=== PATIENT | male | born 1965 | race Caucasian/White ===

== ENCOUNTER 2019-09-28 18:03 | Observation (INO) ==
[2019-09-28] MEDS ORDERED: ASPIRIN PO ONE (18:06)
[2019-09-28] MEDS ORDERED: NITROGLYCERIN ONE (18:23)
[2019-09-28] MEDS ORDERED: ZOFRAN IV ONE (18:25)
[2019-09-28] MEDS ORDERED: MORPHINE IV ONE (18:25)
[2019-09-28] MEDS ORDERED: NITROGLYCERIN SL ONE (18:25)
[2019-09-28 18:31] LABS: BASO# 0.08 X1000 (0.0-0.2); BASO% 0.5 % (0.0-0.8); EOS# 0.33 X1000 (0.0-0.7); EOS% 1.9 % (0.0-10.0); HEMATOCRIT 46.4 % (42.0-52.0); HEMOGLOBIN 15.4 g/dL (14.0-18.0); IMM GRAN# 0.07 X1000 (0.0-0.04); IMM GRAN% 0.4 % (0.0-0.5); LYMPH# 5.46 X1000 (1.2-3.4); LYMPH% 31.5 % (20.5-51.1); MCHC 33.2 g/dL (33-37); MCV 99.6 FL (81-99); MONO# 1.72 X1000 (0.11-0.59); MONO% 9.9 % (1.7-9.3); MPV 9.6 FL (7.4-10.4); NEUT% 55.8 % (42.2-75.2); PLT 374 X1000 (130-400); RBC 4.66 XMIL (4.7-6.1); RDW 13.1 % (11.5-14.5); WBC 17.36 X1000 (4.8-10.8)
[2019-09-28] MEDS ORDERED: NITROGLYCERIN TOP ONE (18:39)
[2019-09-28 18:45] LABS: INR 0.93; PROTIME 12.9 Seconds (11.0-16.0); PTT 27.5 Seconds (22.3-41.8)
[2019-09-28 19:07] LABS: AGAP 11; ALBUMIN 5.1 g/dL (3.5-5.0); ALKALINE PHOSPHATASE 110 U/L (32-122); BUN 16 mg/dL (8-22); CALCIUM 10.1 mg/dL (8.8-10.2); CHLORIDE 100 mmol/L (98-107); CK PROFILE 115 U/L (24-204); COSMO 282; CREATININE 1.2 mg/dL (0.7-1.2); ESTIMATED GFR > 60; GLUCOSE 129 mg/dL (70-104); GOT 21 U/L (10-34); GPT 28 U/L (10-44); SODIUM 140 mmol/L (136-145); TCO2 29 mmol/L (25-35); TOTAL PROTEIN 7.8 g/dL (6.3-8.3)
--- NOTE | 2019-09-28 19:09 | Diag Imaging Result Doc PS360 ---
EXAM: CHEST-2 VIEWS HISTORY: CP TECHNIQUE: Two views COMPARISON: None. FINDINGS: The lungs are well expanded. The heart is not enlarged. The vessels are not distended. There are no infiltrates. No pleural effusions. IMPRESSION: No acute abnormality. Electronically signed by Yayo Pedraza 09/28/2019 7:07 PM
[2019-09-28] MEDS ORDERED: APRESOLINE IV ONE (19:37)
[2019-09-28] MEDS ORDERED: TORADOL IV ONE (19:39)
[2019-09-28 19:54] LABS: BILIRUBIN URINE NEGATIVE (NEGATIVE); BLOOD URINE NEGATIVE (NEGATIVE); CLARITY CLEAR (CLEAR); COLOR YELLOW; GLUCOSE URINE NEGATIVE (NEGATIVE); KETONE URINE NEGATIVE (NEGATIVE); LEUKOCYTES URINE NEGATIVE (NEGATIVE); NITRITE URINE NEGATIVE (NEGATIVE); PROTEIN URINE NEGATIVE (NEGATIVE); SP GRAVITY URINE 1.005; UROBILINOGEN URINE NORMAL
[2019-09-28 19:58] LABS: URINE BACTERIA NEGATIVE /HFP; URINE EPITHELIAL CELLS <10 /HPF (<10); URINE RBC <10 /HPF (<10); URINE SOURCE CLEAN CATCH; URINE WBC <10 /HPF (<10)
[2019-09-28 20:04] LABS: UR AMPHETAMINES QUAL NONE DETECTED (NONE DETECT); UR BARBITUATES QUAL NONE DETECTED (NONE DETECT); UR BENZODIAZEPIN QUAL NONE DETECTED (NONE DETECT); UR CANNABINOIDS QUAL NONE DETECTED (NONE DETECT); UR COCAINE QUAL NONE DETECTED (NONE DETECT); UR METHADONE QUAL NONE DETECTED (NONE DETECT); UR METHAMPHETAMINE QUAL NONE DETECTED (NONE DETECT); UR OPIATES QUAL PRESUMPTIVE POSITIVE (NONE DETECT); UR OXYCODONE QUAL NONE DETECTED (NONE DETECT); UR PCP QUAL NONE DETECTED (NONE DETECT); UR PROPOXYPHENE QUAL NONE DETECTED (NONE DETECT); UR TCA QUAL NONE DETECTED (NONE DETECT)
[2019-09-28] MEDS ORDERED: LOVENOX 1 MG/KG SUBQ ONE (21:14)
[2019-09-28] MEDS ORDERED: LOVENOX SUBQ ONE ×3 (21:30→21:52)
--- NOTE | 2019-09-28 22:03 | PROVIDER DOCUMENTATION ---
This chart was entered by Terrence Scott Scribe, acting as scribe for Elissa Pollack MD. HPI-Chest Pain - General Chief Complaint: Chest Pain Stated Complaint: CHEST PAINS Time Seen by Provider: 09/28/19 19:06 Source: patient Allergies/Adverse Reactions: Patient Allergies Allergy/AdvReac Type Severity Reaction Status Date / Time No Known Allergies Allergy Verified 09/28/19 18:29 Home Medications: Home Medication List Medication Instructions Recorded Confirmed Last Taken Type Hydrocodone/APAP 10 mg/325 mg 1 tab PO PRN PRN 09/28/19 09/28/19 Unknown History [[place]-10] Pantoprazole [Protonix] 40 mg PO DAILY 09/28/19 09/28/19 Unknown History - History of Present Illness-CP Nature of Presenting Problem: Pt is a 54 yom who presents to the ED with a CC of chest pain. Pt reports his chest pain started approximately two hours prior to arrival to the ED. Pt reports his chest pain radiates to his neck and bilaterally to his upper arms. Pt reports taking omeprazole for his symptoms and denies any relief. Pt reports a hx of GERD and HTN. Pt denies a previous heart attack. Upon examination the pt has reproducible chest wall tenderness. Location: reports: central Chest Pain Radiation: reports: arms, neck Quality of Pain: reports: aching, sharp Severity in ED: mild Onset/Duration: 1-3 hours ago Timing: still present, constant Prior Chest Pain/Cardiac Workup: reports: non-cardiac Similar Symptoms Previously?: No Recently Seen Here or By Another Healthcare Provider: No Review of Systems - Adult - REVIEW OF SYSTEMS - ADULT Constitutional: reports: see HPI Eyes: reports: no symptoms reported Ears, Nose, Mouth & Throat: reports: no symptoms reported Cardiovascular: reports: see HPI, chest pain Respiratory: reports: no symptoms reported Gastrointestinal: reports: no symptoms reported Genitourinary: reports: no symptoms reported Musculoskeletal: reports: see HPI, muscle aches, neck pain Integumentary: reports: no symptoms reported Neurological: reports: no symptoms reported Psychiatric: reports: no symptoms reported Endocrine: reports: no symptoms reported Hematologic/Lymphatic: reports: no symptoms reported Allergic/Immunologic: reports: no symptoms reported All Other Systems: Reviewed and Negative Past History - Adult - PAST MEDICAL HISTORY-ADULT Review of Records: reports: Old Records Reviewed, Nursing Assessment Review, Medications Reviewed, Social history reviewed & non-contributory. Major Childhood Illnesses: reports: denies history Cardiovascular: reports: HTN, hyperlipidemia Respiratory: reports: denies history Gastrointestinal: reports: GERD Obstetrical/Gynecological: reports: denies history Genitourinary: reports: denies history Musculoskeletal: reports: denies history Neurological: reports: denies history Endocrine/Immune: reports: denies history Other Conditions: reports: denies history - PRIOR SURGERIES/PROCEDURES Surgical/Procedure History: reports: back/neck - IMMUNIZATION STATUS Childhood Immunizations: See Nurse Assessment Flu Vaccine: See Nurse Assessment - FAMILY HISTORY Family History: reviewed, not pertinent - SOCIAL HISTORY Smoking: cigarettes, less than 1 pack/day Substance Use: none/never, denies Alcohol Use Frequency: never Physical Exam-General - PHYSICAL EXAM-ADULT Initial Vital Signs Reviewed: Yes - CONSTITUTIONAL General Appearance: alert, mild distress - EYES Eyes: PERRL/EOMI, pink conjunctivae - HEAD, EARS, NOSE, MOUTH & THROAT HENMT: normocephalic/atraumatic, moist mucous membranes - NECK Neck: full range of motion - RESPIRATORY Respiratory: lungs clear, normal breath sounds, no respiratory distress, no accessory muscle use, other (Chest wall tenderness) - CARDIOVASCULAR Cardiovascular: normal peripheral pulses, regular rate, rhythm, no edema - GASTROINTESTINAL (ABDOMEN) Abdominal Exam: non tender, soft - MUSCULOSKELETAL Extremity: normal range of motion, non-tender - SKIN Integumentary: normal color, warm/dry - NEUROLOGIC Neurologic: grossly normal, no motor/sensory deficits - PSYCHIATRIC Psych/Mental Status: normal mood/affect, normal thought content, normal thought process, oriented x 3 - HEART Score HEART Score: History: Moderately Suspicious HEART Score: ECG: Non-Specific Repolarization Disturbance/LBBB/PM HEART Score: Age: 45-65 Years HEART Score: Risk Factors for Atherosclerotic Disease: > or = 3 Risk Factors or History of Atherosclerotic Disease HEART Score: Troponin: < or = Normal Limit Total HEART Score:: 5 Progress - PLAN OF CARE/RESULTS Progress/Plan/Lab Results: Vital Signs - 8 hr 09/28/19 18:18 09/28/19 20:00 09/28/19 21:07 Temperature 98.7 F Pulse Rate 78 66 57 L Respiratory Rate 19 18 15 Blood Pressure 194/116 155/96 137/85 O2 Sat by Pulse Oximetry 98 94 L Laboratory Results - last 24 hr 11/08/19 11/08/19 11/08/19 18:20 18:20 18:20 WBC 17.36 H RBC 4.66 L Hgb 15.4 Hct 46.4 MCV 99.6 H MCH 33.0 H MCHC 33.2 RDW Std Deviation 13.1 Plt Count 374 MPV 9.6 Immature Gran % (Auto) 0.4 Neut % (Auto) 55.8 Lymph % (Auto) 31.5 [place] % (Auto) 9.9 H Eos % (Auto) 1.9 Baso % (Auto) 0.5 Immature Gran # (Auto) 0.07 H Neut # (Auto) 9.70 H Lymph # (Auto) 5.46 H [place] # (Auto) 1.72 H Eos # (Auto) 0.33 Baso # (Auto) 0.08 PT INR PTT (Actin FS) Sodium 140 Potassium 4.0 Chloride 100 Carbon Dioxide 29 Anion Gap 11 BUN 16 Creatinine 1.2 Estimated GFR/1.73 m2 > 60 BUN/Creatinine Ratio 13 Glucose 129 H Calculated Osmolality 282 Calcium 10.1 Total Bilirubin 0.20 AST 21 ALT 28 Alkaline Phosphatase 110 Creatine Kinase 115 Troponin T Hpi-W-Qissvyhehgm Pept 115 Total Protein 7.8 Albumin 5.1 H Globulin 3.0 Albumin/Globulin Ratio 2.0 Urine Source Urine Color Urine Clarity Urine pH Ur Specific [place] Urine Protein Urine Ketones Urine Blood Urine Nitrite Urine Bilirubin Urine Urobilinogen Urine Microscopic RBC Urine WBC Urine Microscopic WBC Ur Epithelial Cells Urine Bacteria Urine Glucose Urine Opiates Screen Ur Oxycodone Screen Urine Methadone Screen U Propoxyphene Qual Ur Barbituates Screen Ur Tricyclics Screen Ur Phencyclidine Scrn Ur Amphetamines Screen U Methamphetamines Scrn U Benzodiazepines Scrn Urine Cocaine Screen U Cannabinoids Screen 09/28/19 09/28/19 09/28/19 18:20 18:20 19:49 WBC RBC Hgb Hct MCV MCH MCHC RDW Std Deviation Plt Count MPV Immature Gran % (Auto) Neut % (Auto) Lymph % (Auto) [place] % (Auto) Eos % (Auto) Baso % (Auto) Immature Gran # (Auto) Neut # (Auto) Lymph # (Auto) [place] # (Auto) Eos # (Auto) Baso # (Auto) PT 12.9 INR 0.93 PTT (Actin FS) 27.5 Sodium Potassium Chloride Carbon Dioxide Anion Gap BUN Creatinine Estimated GFR/1.73 m2 BUN/Creatinine Ratio Glucose Calculated Osmolality Calcium Total Bilirubin AST ALT Alkaline Phosphatase Creatine Kinase Troponin T < 0.010 Ikq-I-Ysmceinmimo Pept Total Protein Albumin Globulin Albumin/Globulin Ratio Urine Source CLEAN CATCH Urine Color YELLOW Urine Clarity CLEAR Urine pH 7.0 Ur Specific [place] 1.005 Urine Protein NEGATIVE Urine Ketones NEGATIVE Urine Blood NEGATIVE Urine Nitrite NEGATIVE Urine Bilirubin NEGATIVE Urine Urobilinogen NORMAL Urine Microscopic RBC <10 Urine WBC NEGATIVE Urine Microscopic WBC <10 Ur Epithelial Cells <10 Urine Bacteria NEGATIVE Urine Glucose NEGATIVE Urine Opiates Screen Ur Oxycodone Screen Urine Methadone Screen U Propoxyphene Qual Ur Barbituates Screen Ur Tricyclics Screen Ur Phencyclidine Scrn Ur Amphetamines Screen U Methamphetamines Scrn U Benzodiazepines Scrn Urine Cocaine Screen U Cannabinoids Screen 09/28/19 09/28/19 19:49 20:27 WBC RBC Hgb Hct MCV MCH MCHC RDW Std Deviation Plt Count MPV Immature Gran % (Auto) Neut % (Auto) Lymph % (Auto) [place] % (Auto) Eos % (Auto) Baso % (Auto) Immature Gran # (Auto) Neut # (Auto) Lymph # (Auto) [place] # (Auto) Eos # (Auto) Baso # (Auto) PT INR PTT (Actin FS) Sodium Potassium Chloride Carbon Dioxide Anion Gap BUN Creatinine Estimated GFR/1.73 m2 BUN/Creatinine Ratio Glucose Calculated Osmolality Calcium Total Bilirubin AST ALT Alkaline Phosphatase Creatine Kinase Troponin T 0.054 D Uxc-O-Iastiuzlbbw Pept Total Protein Albumin Globulin Albumin/Globulin Ratio Urine Source Urine Color Urine Clarity Urine pH Ur Specific [place] Urine Protein Urine Ketones Urine Blood Urine Nitrite Urine Bilirubin Urine Urobilinogen Urine Microscopic RBC Urine WBC Urine Microscopic WBC Ur Epithelial Cells Urine Bacteria Urine Glucose Urine Opiates Screen PRESUMPTIVE POSITIVE A Ur Oxycodone Screen NONE DETECTED Urine Methadone Screen NONE DETECTED U Propoxyphene Qual NONE DETECTED Ur Barbituates Screen NONE DETECTED Ur Tricyclics Screen NONE DETECTED Ur Phencyclidine Scrn NONE DETECTED Ur Amphetamines Screen NONE DETECTED U Methamphetamines Scrn NONE DETECTED U Benzodiazepines Scrn NONE DETECTED Urine Cocaine Screen NONE DETECTED U Cannabinoids Screen NONE DETECTED Orders Category Date Time Status Cardiac Monitoring DIRECTED Care 09/28/19 18:07 Active Oxygen Therapy- ED Nursing DIRECTED Care 09/28/19 18:07 Active Saline Loc NOW Care 09/28/19 18:07 Active CHEST-2 VIEWS [RAD] Stat Exams 09/28/19 18:[address] THORAX W/CONTRAST [CT] Stat Exams 09/28/19 22:02 Ordered CBC WITH ELECTRONIC DIFF [HEME] Stat Lab 09/28/19 18:20 Completed CK PROFILE [SP CHEM] Stat Lab 09/28/19 18:20 Completed COMPREHENSIVE METABOLIC PANEL [CHEM] Stat Lab 09/28/19 18:20 Completed PRO B-NATRIURETIC PEPTIDE Stat Lab 09/28/19 18:20 Completed PROTIME WITH INR [COAG] Stat Lab 09/28/19 18:20 Completed PTT [COAG] Stat Lab 09/28/19 18:20 Completed TROPONIN T Stat Lab 09/28/19 18:20 Completed TROPONIN T Stat Lab 09/28/19 20:[address] W/POSS RFLX CULT [URINALYSIS] Stat Lab 09/28/19 19:49 Completed URINE DRUG SCREEN PL Stat Lab 09/28/19 19:49 Completed Aspirin Med 09/28/19 18:06 Discontinued 325 mg PO NOW ONE Enoxaparin 1 mg/kg [Lovenox 1 mg/kg] Med 09/28/19 21:14 Discontinued 1 each SUBQ NOW ONE Enoxaparin [Lovenox] Med 09/28/19 21:52 Discontinued 100 mg SUBQ NOW ONE Enoxaparin [Lovenox] Med 09/28/19 21:52 Discontinued 15 mg SUBQ NOW ONE Hydralazine [Apresoline] Med 09/28/19 19:37 Discontinued 10 mg IV NOW ONE Ketorolac [Toradol] Med 09/28/19 19:39 Discontinued 30 mg IV NOW ONE Morphine Med 09/28/19 18:25 Discontinued 4 mg IV NOW ONE Nitroglycerin Med 09/28/19 18:23 Discontinued 1 inch .ROUTE .STK-MED ONE Nitroglycerin Med 09/28/19 18:39 Discontinued 1 inch TOP NOW ONE Nitroglycerin Sl [Nitroglycerin] Med 09/28/19 18:25 Discontinued 0.4 mg SL NOW ONE Ondansetron [Zofran] Med 09/28/19 18:25 Discontinued 4 mg IV NOW ONE CP/SOB/Palp >45 yrs of Age Stat Oth 09/28/19 18:06 Ordered EKG [EKG] Stat Ther 09/28/19 18:07 Ordered EKG [EKG] Stat Ther 09/28/19 19:40 Ordered Patient with history of high blood pressure not on any medications. Some of the story if concerning with reports of acute onset, happened at rest and happened similarly a few weeks ago. He has never had a stress test. Initial troponin was negative anF EKG with nonspecific ST changes. 2nd troponin negative but increasing. Spoke to patient about admission and he is ok with it. Spoke to Dr Machado argon tester for hospitalist who accepted patient for admission. We spoke about WBC to [address] chest ordered given that other infectious workup is negative. Wanted troponins trended overnight. Orders placed per his recommendations. Stable for floor Result Diagrams: 09/28/19 18:20 09/28/19 18:20 - EKG 1 Time of EKG reading by physician:: 18:11 EKG Read and Signed by:: Nelli Gibbons EKG Interpretation (*Must complete 3 of following elements*): Abnormal (ST & T wave abnormality, consider inferior ischemia) Rate: 84 Rhythm: Sinus rhythm with frequent premature ventricular complexes [place]: normal QRS: normal MT Interval: normal ST Wave: non-specific ST changes 2 Time of EKG reading by physician:: 21:49 EKG Read and Signed by:: Elissa Pollack EKG Interpretation (*Must complete 3 of following elements*): Abnormal Rate: 61 Rhythm: NSR ST Wave: non-specific ST changes - XRAY 1 XRAY: Bilateral XRAY Study: Chest Impression: See EMR Report ( EXAM: CHEST-2 VIEWS HISTORY: CP TECHNIQUE: Two views COMPARISON: None. FINDINGS: The lungs are well expanded. The heart is not enlarged. The vessels are not distended. There are no infiltrates. No pleural effusions. IMPRESSION: No acute abnormality. Electronically signed by Yayo Pedraza 09/28/2019 7:07 PM 09/28/191906 Interpreting Physician: Yayo Pedraza MD Dictated Date/Time: 09/28/191905 cc: Nelli Gibbons MD; Aquiles Baldwin) - CONSULTS/PCP/HOSPITALIST Notification #1 *Consult/PCP/Hospitalist*: Dr Machado Time Discussed: 22:01 (order CT chest trend troponins) Consult Disposition: Admit Departure - Departure Date of Disposition Decision: 09/28/19 Time of Disposition Decision: 22:15 DIAGNOSIS: Chest pain, Leukocytosis, Hypertension Disposition: ADMITTED INPATIENT 09 Certified Medical Emergency: Emergent Condition: Stable Additional Instructions: ED Follow Up Instructions: You have been treated by a care provider in the Emergency Department. These instructions are being provided to you so you can have an understanding of how to care for yourself upon discharge. Upon discharge from the Emergency Department, you are responsible for making arrangements for follow-up care by a physician of your choice. Take all prescribed medications as directed. Return to the Emergency Department immediately for any new or worsening symptoms. You may call the Physician Referral phone number at [phone] to obtain a list of Physicians who are taking new patients. Referrals and Follow-Ups: Aquiles Baldwin CRNP [Primary Care Provider] - - Critical Care Note This patient required my direct & personal management of CC.: No Attestation - Physician/ ELIEZER Attestation Patient care was provided by Advanced Practice Provider:: No The physician spent face to face time with patient:: Yes Advanced Practice Provider documentation review:: Supervising physician onsite and consulted in the evaluation and care of this patient. The physician did have a face to face encounter with the patient. This chart was documented by the indicated scribe, (Terrence Scott Scribe) and accurately reflects the services I performed and decisions made by me, Elissa Pollack MD, as attested by the provider's signature.
[2019-09-28] MEDS ORDERED: MORPHINE IV PRN (22:21)
[2019-09-28] MEDS ORDERED: ZOFRAN IV PRN (22:21)
[2019-09-28 22:47] LABS: HEMOGLOBIN A1C 5.5 % (4.8-6.0)
--- NOTE | 2019-09-29 06:00 | EKG Report ---
Test Performed on : 09/28/2019 8:21:04 PM Test Reason : rpt ekg Blood Pressure : / mmHG Vent. Rate : 058 BPM Atrial Rate : 058 BPM P-R Int : 156 ms QRS Dur : 094 ms QT Int : 388 ms P-R-T Axes : 032 040 110 degrees QTc Int : [address] & T wave abnormality, consider lateral ischemia Abnormal ECG When compared with ECG of 28-SEP-2019 18:10, (Unconfirmed) premature ventricular complexes. are no longer present T wave inversion no longer evident in Inferior leads T wave inversion more evident in Anterolateral leads QT has shortened Unconfirmed Result
--- NOTE | 2019-09-29 06:56 | Diag Imaging Result Doc PS360 ---
EXAM: CT ANGIOGRM PULMONARY ARTERIES HISTORY: chest pain, WBC 17, pe vs AAA TECHNIQUE: CT chest with intravenous contrast. Pulmonary arterial protocol with MIP images. COMPARISON: None. FINDINGS: Normal opacification of the pulmonary arteries and their branches. No aortic aneurysm or dissection. The heart is mildly enlarged. No pleural effusions. There are scattered granuloma and calcified right hilar lymph nodes. There is a 6 mm nodule laterally in the right middle lobe on image 94. Limited images through the upper abdomen reveal fatty infiltration of the liver and mildly distended small bowel loops in the left upper abdomen. IMPRESSION: 1.No pulmonary emboli 2.6 mm nodule laterally in the right middle lobe 3.Mildly distended small bowel loops in the left upper quadrant 4.There is fatty infiltration of the liver 5.A preliminary report was given at 11:56 PM on 09/28/2019 This exam was performed using automated exposure control, adjustment of mA or kV according to patient size, and/or use of iterative reconstruction technique. Electronically signed by Yayo Pedraza 09/29/2019 6:54 AM
--- NOTE | 2019-09-29 07:05 | EKG Report ---
Test Performed on : 09/28/2019 6:10:01 PM Test Reason : CP Blood Pressure : / mmHG Vent. Rate : 084 BPM Atrial Rate : 084 BPM P-R Int : 144 ms QRS Dur : 096 ms QT Int : 376 ms P-R-T Axes : 048 040 -09 degrees QTc Int : 444 ms Sinus rhythm. with frequent premature ventricular complexes. ST & T wave abnormality, consider inferior ischemia Abnormal ECG No previous ECGs available Unconfirmed Result
--- NOTE | 2019-09-29 07:05 | EKG Report ---
Test Performed on : 09/29/2019 06:17:12 AM Test Reason : chest pain Blood Pressure : / mmHG Vent. Rate : 056 BPM Atrial Rate : 056 BPM P-R Int : 158 ms QRS Dur : 098 ms QT Int : 446 ms P-R-T Axes : 036 061 109 degrees QTc Int : [address] & T wave abnormality, consider anterolateral ischemia Abnormal ECG When compared with ECG of 28-SEP-2019 20:21, (Unconfirmed) T wave inversion more evident in Anterolateral leads Unconfirmed Result
[2019-09-29] MEDS ORDERED: LOVENOX SUBQ ONE (07:59)
[2019-09-29] MEDS ORDERED: LOPRESSOR PO ONE (07:59)
[2019-09-29] MEDS ORDERED: ASPIRIN PO SCH (09:00)
--- NOTE | 2019-09-29 09:15 | EKG Report ---
Test Performed on : 09/29/2019 07:54:56 AM Test Reason : telemetry changes Blood Pressure : / mmHG Vent. Rate : 055 BPM Atrial Rate : 055 BPM P-R Int : 160 ms QRS Dur : 096 ms QT Int : 444 ms P-R-T Axes : 037 060 109 degrees QTc Int : [address] & T wave abnormality, consider anterolateral ischemia Abnormal ECG When compared with ECG of 29-SEP-2019 06:17, (Unconfirmed) No significant change was found Unconfirmed Result
[2019-09-29] MEDS ORDERED: NS 1,000 ML IV ONE (10:35)
[2019-09-29 11:13] LABS: AGAP 10; BUN 12 mg/dL (8-22); CALCIUM 9.5 mg/dL (8.8-10.2); CHLORIDE 102 mmol/L (98-107); COSMO 277; CREATININE 0.9 mg/dL (0.7-1.2); ESTIMATED GFR > 60; GLUCOSE 102 mg/dL (70-104); POTASSIUM 4.1 mmol/L (3.5-5.1); SODIUM 139 mmol/L (136-145); TCO2 27 mmol/L (25-35)
[2019-09-29 11:34] LABS: CK INDEX 9.7 (0.0-2.5); CK-MB 54.45 ng/mL (0.0-5.0)
[2019-09-29 11:46] VITALS: BP 136/76
--- NOTE | 2019-09-29 15:43 | HISTORY AND PHYSICAL ---
PRIMARY CARE PROVIDER: Aquiles Baldwin. CHIEF COMPLAINT: Chest pain. HISTORY OF PRESENTING ILLNESS: This is a 54-year-old male who presents to [facility] ER with complaints of chest pain that was substernal initially and then radiated across both sides of his chest into both shoulders, started about 2 hours prior to arriving. He has not had a heart attack in the past, does have a history of GERD and hypertension. His workup showed a white blood cell count of 17.36. His first 2 sets of cardiac enzymes were negative, his 3rd set however this morning at 5:16 was positive at 1.110. He was already admitted to the medical floor. I spoke with cardiology who felt that he needed to be transferred to a higher level of care for further evaluation and treatment so we will work on that but he was admitted to our medical floor initially for further evaluation and treatment. PAST MEDICAL HISTORY: Of hypertension, hyperlipidemia and GERD. PAST SURGICAL HISTORY: Of back and neck surgery. FAMILY HISTORY: Reviewed and noncontributory. SOCIAL HISTORY: Currently lives with family, is a half a pack a day smoker. Denies any alcohol or illicit drug use. ALLERGIES: He has no known drug allergies. HOME MEDICATIONS: He takes [place] 10 p.r.n. and Protonix 40 mg p.o. daily both of which are being held at this time. LABORATORY DATA: Showed a white blood cell count of 17.36, hemoglobin 15.4, hematocrit 46.4, platelet 374,000, PT and INR of 12.9 and 0.93. Sodium of 140, potassium 4, chloride 100, CO2 29, BUN of 16, creatinine 1.2, glucose 129, his hemoglobin A1c was 5.5. Troponin the 1st one was less than 0.010, the 2nd one was 0.054 and the 3rd one which became positive at 1.110. Triglycerides were 180, cholesterol 198. Urinalysis was negative. Urine drug screen was presumptive positive for opiates. A chest x-ray showed no acute abnormality. Pulmonary arteriogram showed no pulmonary emboli, he did have a 6 mm nodule laterally in the right middle lobe, mildly distended small bowel loops in the left upper quadrant. EKG on arrival showed sinus rhythm with frequent PVCs at 84. REVIEW OF SYSTEMS: He denied any fever, chills, blurred vision, dizziness. He was positive for chest pain that radiated across to both shoulders bilaterally. Denied any abdominal pain, constipation, diarrhea, burning or hurting with urination. PHYSICAL EXAMINATION: On arrival he had a temperature of 98.7 degrees, pulse 78, respirations 19, blood pressure was 194/116, saturating 98% on room air. Currently blood pressure is down to 133/84. GENERAL: This is a 54-year-old male who is lying in the bed and answers questions appropriately. HEENT: Normocephalic, atraumatic. Normal ENT inspection. Oropharynx and nares are clear. Pupils are equal, round, and reactive to light and accommodation. Extraocular movements are intact. NECK: Normal inspection, normal range of motion. LUNGS: Clear to auscultation bilaterally with equal lung expansion and chest wall movement. HEART: With some sinus bradycardia this morning, he also had a 5 to 6 beat run of ventricular tachycardia earlier this morning currently stable. No murmurs, rubs or gallops. ABDOMEN: Soft, nontender, nondistended. Bowel sounds are present x4 quadrants. MUSCULOSKELETAL: He had 5/5 strength x4 extremities. NEUROLOGICAL: The cranial nerves 2-12 appear grossly intact. ASSESSMENT: 1. Non-ST segment elevation myocardial infarction . 2. Hypertension. 3. Elevated troponin. 4. Gastroesophageal reflux disease. 5. Tobacco abuse . OUR PLAN: He was initially admitted to the medical unit because his first 2 sets of enzymes were negative. His 3rd 1 has turned positive and we spoke with cardiology protection officer who felt that the patient needed to be transferred to a higher level of care for cardiac intervention. I did try [facility] and they do not have a bed available at this time. I am currently trying at [facility] in [place], [place] so further orders after receiving a bed from another facility and further orders after seen by attending. Dictated by VENANCIO Shultz for Tres Machado MD cc: Aquiels Machado MD
--- NOTE | 2019-09-29 20:34 | HISTORY AND PHYSICAL ---
The patient is stable. No major complaints. He came in for chest pain. His troponins were not positive until this morning it was 1.11. He did have left-sided chest pain. He does have risk factors of hypertension and smoking and I believe some family history. He was treated as a non- STEMI. He did have some ventricular ectopy. All data was consistent with a non-STEMI. His CK/MB and index were all elevated. EKG showed some ST changes. We initially attempted to try to send him to [place] [facility] but they did not have a bed available for him and he ended up going to [facility] in [place], [place] for evaluation. We discussed the case with Dr. Burton, relocation services specialist and hospitalist on-call who were gracious enough to take the patient in admission. cc: Tres Machado MD
[2019-09-29] MEDS ORDERED: LOVENOX SUBQ SCH (21:00)
--- NOTE | 2019-09-29 22:27 | DISCHARGE SUMMARY ---
ADMISSION DATE: 09/28/2019 DISCHARGE DATE: 09/29/2019 PRIMARY CARE PROVIDER: Aquiles Baldwin. ADMISSION DIAGNOSES: 1. Chest pain. 2. Elevated troponin. 3. Non-ST segment elevation myocardial infarction. 4. Tobacco abuse. 5. Leukocytosis most likely reactive. DISCHARGE DIAGNOSIS: 1. Chest pain. 2. Elevated troponin. 3. Non-ST segment elevation myocardial infarction. 4. Tobacco abuse. 5. Leukocytosis most likely reactive. SUMMARY OF FINDINGS: This is a 54-year-old male who presented to [facility] ER with complaints of substernal chest pain that radiated into his bilateral shoulders. His first troponin was negative at less than 0.010. Second set went up just a little bit at 0.054, 3rd set was positive at 1.110. He did not have any significant EKG changes. We discussed this case with Cardiology who felt that he needed cardiac intervention with heart catheterization with intervention there and we did make an attempt to call [facility] did not have a bed available so we went with [facility] in [place] to painter aircraft Dr. Burton and he was discharged from our facility via ambulance to their facility for further evaluation and treatment. TIME SPENT: 35 minutes. Dictated by VENANCIO Shultz for Tres Machado MD cc: Aquiles Machado MD
--- NOTE | 2019-09-30 00:22 | ECHO REPORT ---
ORDER DATE: 09/29/2019 MEASUREMENTS: Septal thickness 1.1, left ventricular internal diastolic 5.6, posterior wall thickness 1.0, left ventricular internal diameter in systole 3.6, aortic root 3.6, left atrium 4.2. SUMMARY: 1. Technically difficult study due to limited acoustic window quality. 2. Aortic valve is trileaflet and opens normally on 2-dimensional images. Peak gradient across aortic valve is approximately 10 to 15 mmHg. Mitral, tricuspid, and pulmonic valves are without evidence of structural abnormality with trace mitral regurgitation, trace tricuspid regurgitation, and trace pulmonic insufficiency. The aortic root is normal in size. 3. Normal left ventricular dimensions demonstrated. The estimated left ventricular ejection fraction appears to be at least 65%. Regional wall motion analysis is somewhat challenging given the limitations of the study. There appears to be a very small area of severe hypokinesis in the apical septum and a small area of mild hypokinesis in the apical anterior wall. Prominent trabeculation is noted in left ventricular apex. Left atrium is mildly enlarged. Right atrium, right ventricle are normal size with grossly preserved right ventricular systolic function. 4. No pericardial effusion. 5. Appearance of inferior vena cava suggests normal central venous pressure. cc: Vidal Guerra MD
== END 2019-09-29 12:40 | disposition short-term general hospital (02) ==
LOC: P.ED 18:03 → P.MEDSURG 18:03
PROVIDERS: ATTEND Internal Medicine